=== PATIENT | female | born 1955 | race Caucasian/White ===

== ENCOUNTER → 2016-10-23 | Outpatient (CLI) | payer OTHER | LOC: RAD 10:09 | DX: R05 Cough (principal); F17.200 Nicotine dependence, unspecified, uncomplicated ==

== ENCOUNTER 2016-10-31 08:28 | Emergency (ER) | payer OTHER ==
[~2016-10-31] VITALS: Ht 170.2 cm; Wt 79.4 kg
[2016-10-31] MEDS ORDERED: NORCO 10-325 T1 EACH PO (09:34)
[2016-10-31] MEDS ORDERED: ACYCLOVIR 400400 MG PO (09:34)
[2016-10-31] MEDS ORDERED: XANAX 0.25 MG0.25 MG PO (09:38)
[2016-10-31 09:42] VITALS: BP 148/73
== END 2016-10-31 09:47 | disposition home or self-care (01) ==
LOC: ER 08:28
DX: B02.9 Zoster without complications (principal); Z90.711 Acquired absence of uterus with remaining cervical stump; F17.210 Nicotine dependence, cigarettes, uncomplicated; F41.9 Anxiety disorder, unspecified; Z98.890 Other specified postprocedural states; Z88.0 Allergy status to penicillin